=== PATIENT | male | born 1950 | race Caucasian/White ===

== ENCOUNTER 2017-06-29 11:27 | Emergency (ER) | payer MEDICARE, BC ==
[~2017-06-29] VITALS: Ht 172.7 cm; Wt 80.7 kg
[2017-06-29] MEDS ORDERED: LIDOCAINE HCL 1% 20 ML VIAL IJ ONE (12:00)
[2017-06-29] MEDS ORDERED: LIDOCAINE HCL 1% 20 ML VIAL ONE (12:05)
[2017-06-29] MEDS ORDERED: HYDROMORPHONE 1 MG/1 ML DISP.SYRIN IV ONE (12:15)
[2017-06-29] MEDS ORDERED: ONDANSETRON 4 MG/2 ML VIAL IV ONE (12:15)
[2017-06-29] MEDS ORDERED: HYDROMORPHONE 1 MG/1 ML DISP.SYRIN ONE (12:45)
[2017-06-29] MEDS ORDERED: ONDANSETRON 4 MG/2 ML VIAL ONE (12:46)
--- NOTE | 2017-06-29 12:49 | NUR ---
PT WAS EVALUATED BY DR YOUSSEF. PT WAS D/C TO HOME. D/C INSTRUCTIONS GIVEN TO THE PT. PT TOLERATED TO MEDICATION AND PROCEDURES WITHOUT COMPLICATIONS.
[2017-06-29 12:52] VITALS: BP 142/78
== END 2017-06-29 13:26 | disposition home or self-care (01) ==
LOC: ER 11:33
DX: S63.259A Unspecified dislocation of unspecified finger, initial encounter (principal); W10.9XXA Fall (on) (from) unspecified stairs and steps, initial encounter; Y93.89 Activity, other specified; Y92.89 Other specified places as the place of occurrence of the external cause; Y99.8 Other external cause status
CPT/HCPCS: 26770; 73140 ×2; 96374; 96375; 99284; A4663; J1170; J2405; J3490; J7030